=== PATIENT | female | born 1980 | race Caucasian/White ===

== ENCOUNTER 2017-09-30 15:42 | Emergency (ER) | payer OTHER ==
[2017-09-30] MEDS ORDERED: NS 1,000 ML IV ONE (15:49)
[2017-09-30] MEDS ORDERED: KETOROLAC 15 MG/1 ML SDV IVP ONE (16:14)
[2017-09-30] MEDS ORDERED: HYOSCYAMINE SULFATE 0.125 MG TAB PO ONE (16:14)
[2017-09-30] MEDS ORDERED: IOPAMIDOL (ISOVUE-300) 100 ML BTL ONE (16:46)
--- NOTE | 2017-09-30 16:54 | EDPHY ---
H & P Stated Complaint: rlq abd pain started 2 days ago Time Seen by Provider: 09/30/17 15:49 HPI/ROS: This patient history of 1 tab presents with right lower quadrant abdominal pain of 48 hr duration. She was seen by Dr. Tomasz Longoria GI of the [facility] for her abdominal pain and after evaluating her he called the emergency department and sent the patient in for further workup with concern of potential acute appendicitis. Patient explains that she carries a diagnosis of IBS which is typically manifest as crampy pain and loose stools after eating food intermittently. She admits that last week she had some loose stools but 10 min after eating characteristic for prior episodes of pain. However Saturday night she developed increasing belly pain that was more achy in nature than her typical IBS symptoms. The pain is been constant since for the past 48 hr it has been constant. She describes the pain as 6/10 achiness at baseline becomes sharp with movement. There are also intermittent episodes of significant increase in the severity with peak intensity of 9 or 10/10. She has associated anorexia and nausea. She did eat some salty crackers on the way to the emergency department. She has never had this type of belly pain before. ROS: Constitutional: No fevers today that she felt subjective fevers last night and took 400 mg of ibuprofen at 4:00 a.m. With partial relief of her discomfort and subjective fevers and is able sleep thereafter. She has had no analgesics or anti-inflammatory since that time. HEENT: No complaints new line pulmonary: No shortness of breath. No coughing. Cardiovascular: No heart palpitations or lightheadedness. No chest pain. GI: She denies any abdominal distension. She has still persistent soft stools of smaller caliber but no neftaly diarrhea over the past 24 hr. She denies any dark tarry stools. She did have dark stools after taking Pepto-Bismol but she clearly associates that with the Pepto-Bismol timing. : Last menstrual period was normal timing for her normal flow on September 09. No dysuria. No vaginal discharge. Integumentary: No rash. She did have diaphoresis last night during her subjective fevers. Complete review of symptoms otherwise negative. Source: Patient Exam Limitations: No limitations - Personal History LMP (Females 10-55): 15-21 Days Ago - Medical/Surgical History PMH: 1 tab, no other surgical procedures on her abdomen. She has not had a colonoscopy in her past. Other PMH: elective surg, anxiety - Social History Smoking Status: Never smoked Alcohol Use: Occasionally Drug Use: None Additional Social History: The patient went to [facility] and returned 1 week ago. No other recent travel. She denies any drug use. - Physical Exam Exam: Vital signs are normal exception of mild hypertension General Appearance: Alert, no distress. Eyes: Pupils equal and round no pallor or injection. ENT, Mouth: Mucous membranes moist. Respiratory: There are no retractions, lungs are clear to auscultation. Cardiovascular: Regular rate and rhythm. Gastrointestinal: Normoactive to hypoactive bowel sounds. Patient has moderate right lower quadrant tenderness borderline for rebound. No upper belly tenderness. No organomegaly. Back: No CVA tenderness Neurological: GCS 15 Skin: Warm and dry, no rashes. Musculoskeletal: Neck is supple nontender. Extremities are symmetrical, full range of motion. Psychiatric: Mood and affect are normal DIFFERENTIAL DIAGNOSIS: After history and physical exam differential diagnosis was considered for acute appendicitis, diverticulitis, mesenteric adenitis, ectopic , constipation, IBS flare, UTI Constitutional: Initial Vital Signs Temperature (C) 36.9 C 09/30/17 15:50 Heart Rate 68 09/30/17 15:50 Respiratory Rate 18 09/30/17 15:50 Blood Pressure 153/89 H 09/30/17 15:50 O2 Sat (%) 95 09/30/17 15:50 O2 Delivery Mode Room Air Allergies/Adverse Reactions: No Known Allergies Allergy (Unverified 09/30/17 15:49) Home Medications: Medication Instructions Recorded Bcp 09/30/17 Citalopram 09/30/17 Hyoscyamine Sulfate [Levsin, 0.125 - 0.25 mg SL Q6 PRN #20 tab 09/30/17 Hyomax-Sl 0.125 mg (*)] Promethazine HCl [Phenergan 50mg 50 mg IA Q6 PRN #4 suppr 09/30/17 supp (*)] Medical Decision Making - Diagnostics Imaging Results: Imaging Impressions Abdomen CT 09/30/17 16:14 Impression: 1. Thickening and inflammatory changes associated with the ascending and proximal transverse colon, with mild thickening of the terminal ileum, suggesting colitis with possible backwash ileitis. 2. Prominent lymph nodes, likely reactive. 3. Additional findings, as above. Findings discussed with Trevor Tate, on September 30, 2017 at 1718. Imaging: Discussed imaging studies w/ scallop shucker Radiologist ED Course/Re-evaluation: IV normal saline bolus Levsin sublingual and Toradol IV with partial relief of symptoms down to a 2/10 for pain. I had a discussion with this patient imaging modality options that would include abdominal ultrasound versus proceed directly to CT. The patient is comfortable proceeding directly to CT scan understanding the some radiation associated with this. I counseled patient regarding her CT findings of mild swelling of the ascending colon consistent with a colitis-question viral, autoimmune or other. She has no red flag findings today-normal CBC, no bloody stools, no rebound tenderness CT without other significant abnormalities beyond the mild swelling of the ascending colon. We ruled out , rule out UTI. I recommended the patient continue taking ibuprofen for discomfort. In addition she will take Tylenol and Levsin if needed. Phenergan suppositories for nausea if needed. Patient will follow up with GI of the [facility] for further evaluation of any ongoing symptoms. She understands need to return emergency department should she develop any significant worsening despite the treatment plan - Data Points Laboratory Results: Laboratory Results 09/30/17 16:20 09/30/17 09/30/17 16:29 16:20 WBC 5.88 10^3/uL 10^3/uL (3.80-9.50) RBC 4.53 10^6/uL 10^6/uL (4.18-5.33) Hgb 13.7 g/dL g/dL (12.6-16.3) Hct 41.0 % % (38.0-47.0) MCV 90.5 fL fL (81.5-99.8) MCH 30.2 pg pg (27.9-34.1) MCHC 33.4 g/dL g/dL (32.4-36.7) RDW 14.0 % % (11.5-15.2) Plt Count 304 10^3/uL 10^3/uL (150-400) MPV 10.7 fL fL (8.7-11.7) Neut % (Auto) 53.2 % % (39.3-74.2) Lymph % (Auto) 31.8 % % (15.0-45.0) [place] % (Auto) 13.1 % H % (4.5-13.0) Eos % (Auto) 1.0 % % (0.6-7.6) Baso % (Auto) 0.7 % % (0.3-1.7) Nucleat RBC Rel Count 0.0 % % (0.0-0.2) Absolute Neuts (auto) 3.13 10^3/uL 10^3/uL (1.70-6.50) Absolute Lymphs (auto) 1.87 10^3/uL 10^3/uL (1.00-3.00) Absolute Monos (auto) 0.77 10^3/uL 10^3/uL (0.30-0.80) Absolute Eos (auto) 0.06 10^3/uL 10^3/uL (0.03-0.40) Absolute Basos (auto) 0.04 10^3/uL 10^3/uL (0.02-0.10) Absolute Nucleated RBC 0.00 10^3/uL 10^3/uL (0-0.01) Immature Gran % 0.2 % % (0.0-1.1) Immature Gran # 0.01 10^3/uL 10^3/uL (0.00-0.10) POC Sodium 140 mEq/L mEq/L (135-145) POC Potassium 3.2 mEq/L L mEq/L (3.3-5.0) POC Chloride 105.0 mEq/L mEq/L (97-110) POC Total CO2 25 mEq/L mEq/L (22-31) POC BUN 6 mg/dL L mg/dL (7-23) POC Creatinine 0.6 mg/dL mg/dL (0.6-1.0) POC Glucose 109 mg/dL H mg/dL (70-100) POC Calcium 8.7 mg/dL mg/dL (8.5-10.4) Medications Given: Discontinued Medications Hyoscyamine Sulfate (Levsin, Hyomax-Sl) 0.125 mg PO EDNOW ONE Stop: 09/30/17 16:15 Last Admin: 09/30/17 16:42 Dose: 0.125 mg Sodium Chloride (Ns) 1,000 mls @ 0 mls/hr IV EDNOW ONE; Wide Open PRN Reason: Protocol Stop: 09/30/17 15:50 Last Admin: 09/30/17 16:42 Dose: 1,000 mls Ketorolac Tromethamine (Toradol) 15 mg IVP EDNOW ONE Stop: 09/30/17 16:15 Last Admin: 09/30/17 16:43 Dose: 15 mg Point of Care Test Results: Chemistry 09/30/17 16:29 POC Sodium 140 mEq/L mEq/L (135-145) POC Potassium 3.2 mEq/L L mEq/L (3.3-5.0) POC Chloride 105.0 mEq/L mEq/L (97-110) POC Total CO2 25 mEq/L mEq/L (22-31) POC BUN 6 mg/dL L mg/dL (7-23) POC Creatinine 0.6 mg/dL mg/dL (0.6-1.0) POC Glucose 109 mg/dL H mg/dL (70-100) POC Calcium 8.7 mg/dL mg/dL (8.5-10.4) Urine Collection Date 09/30/17 Collection Time 16:30 HCG Results Negative Urine Dip Collection Date 09/30/17 Collection Time 16:28 Specific [place] (1.002-1.030) 1.015 PH (5.0-7.5) 6.0 Nitrites (Negative) Negative Protein (Negative) Negative Glucose (Negative) Negative Ketones (Negative) Negative Urobilnogen (0.2-1.0 EU) 0.2 Bilirubin (Negative) Negative Blood (Negative) Trace Departure - Departure Disposition: Home, Routine, Self-Care Clinical Impression: Colitis, Dehydration Condition: Good Instructions: Colitis (ED) Additional Instructions: Diagnoses: 1. Colitis 2. Dehydration Plan: Epemszzao-681-727 mg per 6 hr and Tylenol 650-1000 mg per 4-6 hours-do not exceed 3000 mg in 24 hr as needed for pain Levsin in addition for crampy pain if needed. Phenergan suppository if needed for nausea or vomiting Henry diet to feel improved Follow up with GI of the [facility] for further evaluation. Return emergency department for any significant worsening despite the treatment plan. Referrals: JEREMIAH ADAMS MD [Other] - As per Instructions Tomasz Finn MD [Medical Doctor] - As per Instructions Prescriptions: Hyoscyamine Sulfate [Levsin, Hyomax-Sl 0.125 mg (*)] 0.125 - 0.25 mg SL Q6 PRN # 20 tab PRN Reason: abdominal cramping Promethazine HCl [Phenergan 50mg supp (*)] 50 mg IA Q6 PRN #4 suppr PRN Reason: nausea/vomiting
[2017-09-30 17:17] LABS: PLATELET COUNT 304 10^3/uL (150-400)
[2017-09-30 17:49] VITALS: BP 149/95
== END 2017-09-30 17:48 | disposition home or self-care (01) ==
LOC: CED 15:42
DX: K52.9 Noninfective gastroenteritis and colitis, unspecified (principal); E86.9 Volume depletion, unspecified
CPT/HCPCS: 74177-PO; 80048-PO; 96374; J1885; Q9967